=== PATIENT | male | born 1955 | race Caucasian/White ===

== ENCOUNTER 2024-01-07 14:08 | Inpatient (IN) | payer OTHER ==
[~2024-01-07] VITALS: Ht 177.8 cm; Wt 128.0 kg
--- NOTE | 2024-01-07 14:32 | ED.PDOC ---
History of Present Illness HPI Comments pt's walker broke and possibly struck his right leg. pt has neuropathy so cannot feel pain. he looked down and saw blood on the ground. this morning, the leg is red and swollen Chief Complaint: Fall Injury Time Seen by MD: 14:12 Reviewed Notes: Nurses Notes Allergies: Coded Allergies: NO KNOWN ALLERGIES (Unverified , 01/07/24) Information Source: Patient, Friend Mode of Arrival: Ambulatory Severity: Mild Timing: Days (1) Duration: Since onset Prehospital treatment: Other (dressing) Location: right leg Associated signs and symptoms redness, swelling Past Medical History PAST MEDICAL HISTORY: AFIB, DM Past Medical History (Other): djd Surgical History (Other): bilatereol shoulders, Family History Family History: Reviewed,noncontributory to illness, No family hx of Cancer, No family hx of DM, No family hx of Heart arash, No family hx of HTN, No family hx ofKidney arash, No family hx of Liver arash, No family hx of Lung arash, No family hx of Stroke Social History Smoker: Non-Smoker Alcohol: Denies ETOH Use Drugs: Denies Drug Use Constitutional: denies: chills, diaphoresis, fatigue, fever, malaise, sweats, weakness, others EENTM: denies: blurred vision, double vision, ear bleeding, ear discharge, ear drainage, ear pain, ear ringing, eye pain, eye redness, hearing loss, mouth pain, mouth swelling, nasal discharge, nose bleeding, nose congestion, nose pain, photophobia, tearing, throat pain, throat swelling, voice changes, others Respiratory: denies: cough, hemoptysis, orthopnea, SOB at rest, shortness of breath, SOB with excertion, stridor, wheezing, others Cardiovascular: denies: chest pain, dizzy spells, diaphoresis, Dyspnea on exertion, edema, irregular heart beat, left arm pain, lightheadedness, palpitations, PND, syncope, others Gastrointestinal: denies: abdomen distended, abdominal pain, blood streaked bowels, constipated, diarrhea, dysphagia, difficulty swallowing, hematemesis, melena, nausea, poor appetite, poor fluid intake, rectal bleeding, rectal pain, vomiting, others Genitourinary: denies: burning, dysuria, flank pain, frequency, hematuria, incontinence, penile discharge, penile sore, pain, testicle pain, testicle swelling, urgency, others Neurological: denies: dizziness, fainting, headache, left sided numbness, left sided weakness, numbness, paresthesia, pre-existing deficit, right sided numbness, right sided weakness, seizure, speech problems, tingling, tremors, weakness, others Integumetry: reports: change in color, rash, wounds; denies: bruises, change in hair/nails, dryness, laceration, lesions, lumps, others Allergic/Immunocompromised: denies: Difficulty Healing, Frequent Infections, Hives, Itching, others Hematologic/Lymphatic: denies: anemia, blood clots, easy bleeding, easy bruising, swollen glands, others Endocrine: denies: excessive hunger, excessive sweating, excessive thirst, excessive urination, flushing, intolerance to cold, intolerance to heat, unexplained weight gain, unexplained weight loss, others Psychiatric: denies: anxiety, bipolar disorder, depression, hopeless, panic disorder, schizophrenia, sleepless, suicidal, others All Other Systems: Reviewed and Negative Physical Exam General Appearance: No Apparent Distress, Normal HEENT: Normal ENT Inspection, Pharynx Normal, TMs Normal Neck: Full Range of Motion, Non-Tender, Normal, Normal Inspection Respiratory: Chest Non-Tender, Lungs Clear, No Accessory Muscle Use, No Respiratory Distress, Normal Breath Sounds Cardiovascular: No Edema, No JVD, No Murmur, No Gallop, Normal Peripheral Pulses, Regular Rate/Rhythm Breast Exam: Deferred Gastrointestinal: No Organomegaly, Non Tender, No Pulsatile Mass, Normal Bowel Sounds, Soft Genitalia: Deferred Pelvic: Deferred Rectal: Deferred Extremities: No calf tenderness, Normal capillary refill, Normal inspection, Normal range of motion, Non-tender, No pedal edema, Swelling, Other (right lower lateral leg with a hematoma, with oozing of blood, surrounded by cellulitic patch) Musculoskeletal : Apperance: Normal Neurologic: Alert, 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 Was a procedure done?: No Differential Dx Considerations may include: abscess, hematoma, fracture, soft tissue retained FB, laceration, cellulitis, necrotizing fasciitis X-Ray, Labs, Meds, VS Vital Signs Date Time Temp Pulse Resp B/P (MAP) Pulse Ox O2 Delivery O2 Flow Rate FiO2 01/07/24 19:30 97.8 77 16 129/63 (85) 97 97.8 01/07/24 19:30 77 16 Hi-Flow Heated NC+ 70 N/A Hi-Flow NC 01/07/24 18:31 72 16 95/50 01/07/24 17:14 67 20 95/45 (62) 93 01/07/24 17:14 78 16 101/52 01/07/24 16:00 73 01/07/24 15:45 78 20 96 Nasal Cannula* 2 28 01/07/24 15:36 98.2 78 20 91/42 (58) 93 98.2 01/07/24 14:56 98.2 78 20 100/50 (67) 96 98.2 01/07/24 14:21 98.5 68 20 95/41 (59) 94 Lab Test 01/07/24 19:23 01/07/24 17:32 01/07/24 14:48 Range/Units Troponin I High Sensitivity 17 17 18 </=54 ng/L Lactic Acid Level 1.0 2.0 0.4-2.0 mmol/L White Blood Count 9.9 4.4-10.8 10^3/uL Red Blood Count 4.88 4.5-5.90 10^6/uL Hemoglobin 13.6 13.5-17.5 g/dL Hematocrit 41.7 41.0-53.0 % Mean Corpuscular Volume 85.4 80.0-100.0 fL Mean Corpuscular Hemoglobin 27.9 L 28.0-32.0 pg Mean Corpuscular Hemoglobin Concent 32.6 32.0-36.0 g/dL Red Cell Distribution Width 17.0 H 11.8-14.3 % Platelet Count 251 140-450 10^3/uL Mean Platelet Volume 7.9 6.9-10.8 fL Neutrophils (%) (Auto) 73.3 37.0-80.0 % Lymphocytes (%) (Auto) 13.7 10.0-50.0 % Monocytes (%) (Auto) 10.8 0.0-12.0 % Eosinophils (%) (Auto) 1.5 0.0-7.0 % Basophils (%) (Auto) 0.7 0.0-2.0 % Neutrophils # (Auto) 7.3 1.6-8.6 10 ^3/uL Lymphocytes # (Auto) 1.4 0.4-5.4 10 ^3/uL Monocytes # (Auto) 1.1 0-1.3 10 ^3/uL Eosinophils # (Auto) 0.2 0-0.8 10 ^3/uL Basophils # (Auto) 0.1 0-0.2 10 ^3/uL Nucleated Red Blood Cells 0.0 % Prothrombin Time 11.9 H 9.3-11.8 sec Prothrombin Time INR 1.13 0.9-1.15 Activated Partial Thromboplast Time 28.4 24.5-34.5 SEC Sodium Level 137 136-145 mmol/L Potassium Level 4.3 3.5-5.1 mmol/L Chloride Level 100 98-107 mmol/L Carbon Dioxide Level 30 20-31 mmol/L Anion Gap 7 5-15 Blood Urea Nitrogen 24 H 9-23 mg/dL Creatinine 0.84 0.700-1.30 mg/dL Glomerular Filtration Rate Calc 96 >90 mL/min BUN/Creatinine Ratio 28.6 H 10.0-20.0 Serum Glucose 105 74-106 mg/dL Calcium Level 9.8 8.7-10.4 mg/dL Current Medications Medications (Trade) Dose Ordered Sig/Yesneia Route Start Time Stop Time Status Last Admin Ceftriaxone Sodium 50 ml @ 100 mls/hr ONCE ONCE IV 01/07/24 14:30 01/07/24 14:59 DC 01/07/24 15:35 Sodium Chloride 2,200 ml @ 2,200 mls/hr ONCE ONCE IV 01/07/24 16:00 01/07/24 16:59 DC 01/07/24 16:28 Morphine Sulfate 2 mg ONCE ONCE IV 01/07/24 16:45 01/07/24 16:46 DC 01/07/24 17:14 Ondansetron HCl (Zofran) 4 mg ONCE ONCE IV 01/07/24 16:45 01/07/24 16:46 DC 01/07/24 17:15 Time of 1ST Reevaluation: 15:51 Reevaluation 1ST: Worsened (the rash has spred proximally, but thre is no crepitus, no exquisit tenderness. his BP has dropped. i will initiate sepssi protocol, order a ct to rule out necrotizing fasciitis) Time of 3RD Reevaluation: 21:10 Reevaluation 3RD: Improved Patient Education/Counseling: Diagnosis, Treatment, Prognosis, Need For Follow Up Family Education/Counseling: Diagnosis, Treatment, Prognosis, Need For Follow Up Additional Information pt presented with a rapidly progressing cellulitis of the right leg. she was showing signs of sepsis. pt responded to treatments and his rash had stop progressing and his BP has improved pt will need to be admitted for sepsis and cellulitis i ordered and reviewed the results for cbc, chemistry, xray, lactic acid i also obtained additional information from independent historian who is a fr iend i reviewed and agree with radiology regarding the xray. the ct report is pending i communicated with hospital personnel regarding treatments and plan we have called radiology multiple times to try to get the ct reading, but we are told there were delays in sending images, so we are still waiting for result i will sign out to Dr Jacinto with the ct result pending to consult [facility] to admit Departure 1 Departure Time of Disposition: 21:16 Impression: Primary Impression: Sepsis Qualified Codes: A41.9 - Sepsis, unspecified organism Additional Impressions: Hematoma Cellulitis Qualified Codes: L03.115 - Cellulitis of right lower limb Disposition: 30 STILL A PATIENT Condition: Stable Critical Care Note Critical Care Time?: Yes (1 hr-critical care time only) Critical care comment: due to the likelihood of patients condition suddenly deteriorating, the care requires my highest level of attention, readiness to intervene. my critical care include assessing and reassessing of patient's condition, response to treatments, ordering the appropriate tests, reviewing the results, ordering of treatments, discussing the care with medical personnel and consultants, and formulating a treatment plan, as well a reviewing various medical records. this include at least 50% face-face interaction, and does not include any procedures Stability Stability form required: DEANDRE Sepulveda MD Jan 07, 2024 14:32
[2024-01-07 15:05] LABS: Basophils # (auto) 0.1 10 ^3/uL (0-0.2); Basophils % (auto) 0.7 % (0.0-2.0); Eosinophils # (auto) 0.2 10 ^3/uL (0-0.8); Eosinophils % (auto) 1.5 % (0.0-7.0); Hematocrit 41.7 % (41.0-53.0); Hemoglobin 13.6 g/dL (13.5-17.5); Lymphocytes # (auto) 1.4 10 ^3/uL (0.4-5.4); Lymphocytes % (auto) 13.7 % (10.0-50.0); Mean Corpuscular Hemoglobin 27.9 pg (28.0-32.0); Mean Corpuscular Hgb Conc. 32.6 g/dL (32.0-36.0); Mean Corpuscular Volume 85.4 fL (80.0-100.0); Monocytes # (auto) 1.1 10 ^3/uL (0-1.3); Monocytes % (auto) 10.8 % (0.0-12.0); Neutrophils # (auto) 7.3 10 ^3/uL (1.6-8.6); Neutrophils % (auto) 73.3 % (37.0-80.0); Platelet Count (auto) 251 10^3/uL (140-450); Red Blood Cells 4.88 10^6/uL (4.5-5.90); White Blood Cell 9.9 10^3/uL (4.4-10.8)
[2024-01-07 15:13] LABS: Chloride 100 mmol/L (98-107); Potassium 4.3 mmol/L (3.5-5.1); Sodium 137 mmol/L (136-145)
[2024-01-07 15:14] LABS: Anion Gap 7 (5-15); Calcium 9.8 mg/dL (8.7-10.4); Carbon Dioxide 30 mmol/L (20-31)
[2024-01-07 15:19] LABS: BUN/Creatinine Ratio 28.6 (10.0-20.0); Blood Urea Nitrogen 24 mg/dL (9-23); Glucose 105 mg/dL (74-106)
[2024-01-07 15:27] LABS: INR 1.13 (0.9-1.15); Partial Thromboplastin Time 28.4 SEC (24.5-34.5); Prothrombin Time 11.9 sec (9.3-11.8)
[2024-01-07] MEDS: cefTRIAXone 1GM/50ML D5W 50 ML IV ONE (15:35)
[2024-01-07 15:45] VITALS: PULSE 78; RESP 20; O2SAT 96
--- NOTE | 2024-01-07 15:57 | DVH ---
CLINICAL INDICATION: injury TECHNIQUE: 3 radiographic views of the right tibia and fibula were obtained. Comparison: None FINDINGS/IMPRESSION: There is no evidence of acute fracture or dislocation. Bony spur of the tibial spine. The visualized joint space is well maintained. The alignment is anatomical. There is soft tissue edema of the lateral mid and distal lower leg.
[2024-01-07] MEDS: SODIUM CHLORIDE 0.9% 2,200 ML IV ONE (16:28)
[2024-01-07] MEDS: MORPHINE SULFATE INJ 2 MG/ml SYRG IV ONE (17:14)
[2024-01-07] MEDS: ONDANSETRON HCL 4 MG/2 ML VIAL IV ONE (17:15)
[2024-01-07 19:30] VITALS: PULSE 77; RESP 16
[2024-01-07 19:35] VITALS: PULSE 78; RESP 18
[2024-01-07] MEDS: HYDROcodone-ACET 5/325MG TAB PO ONE (21:46)
--- NOTE | 2024-01-07 22:03 | DVH ---
INDICATION: NECROTIZING FASCITIS COMPARISON: None TECHNIQUE: CT of the right was performed without contrast. Volume transverse images were obtained a nd reconstructed in multiple planes using bone and soft tissue algorithms. CONTRAST: None Radiation Dose Information: CT Dose: CTDI volume is 7.75 mGy. Dose-length product is 422.05 mGy*cm FINDINGS: The alignment is normal. The joint spaces are normal. Minimally displaced fracture lateral aspect of the patella. There is minimal soft tissue swelling thi s may represent old injury. Correlate for tenderness over this region. There is a well-circumscribed oval soft tissue density ( 4.8 x 3.5 cm x 5.5 cm) just below the skin o n the lateral side of the mid tibia with what appears to be a communication with the surface. (series 2 images 235- 249 ). Tissue density is 56.67 HU and does not appear to be a simple fluid collection. IMPRESSION: Most likely subcutaneous phlegmon lateral surface mid tibia. Measures 4.8 by 3.5 by 5.5 cm. There joanna ears to be a break in the skin over the lesion. There is no osseous abnormality periosteal reaction or fracture. Fracture deformity age indeterminate lateral portion of the patella with minimal overlying soft tissu e swelling. Bifid patella versus old injury or both in the differential. Correlate for point of maxim um tenderness.
[2024-01-07] MEDS ORDERED: NITROGLYCERIN 0.4 MG SL TAB SL PRN (23:30)
[2024-01-07] MEDS ORDERED: MORPHINE SULFATE INJ 2 MG/ml SYRG IV PRN (23:30)
[2024-01-07] MEDS ORDERED: ONDANSETRON HCL 4 MG/2 ML VIAL IV PRN (23:30)
[2024-01-07 23:48] LABS: Urine Bacteria None Seen /hpf (None Seen); Urine WBC None Seen /hpf (0 - 3)
[2024-01-08 00:03] LABS: Urine Blood Negative /uL (Negative); Urine Clarity Clear (Clear); Urine Color Light-Yellow (Yellow); Urine Protein, UAD Negative (Negative); Urine Specific Gravity 1.017 (1.001-1.035); Urine Urobilinogen Normal (Negative)
[2024-01-08] MEDS: SOD CHL 0.45% 1,000 ML IV ONE (00:03)
[2024-01-08] MEDS: MORPHINE SULFATE INJ 2 MG/ml SYRG IV PRN (02:37)
[2024-01-08 05:15] LABS: Basophils # (auto) 0.1 10 ^3/uL (0-0.2); Basophils % (auto) 0.8 % (0.0-2.0); Eosinophils # (auto) 0.3 10 ^3/uL (0-0.8); Eosinophils % (auto) 3.2 % (0.0-7.0); Hematocrit 39.5 % (41.0-53.0); Lymphocytes # (auto) 1.5 10 ^3/uL (0.4-5.4); Lymphocytes % (auto) 18.8 % (10.0-50.0); Mean Corpuscular Hemoglobin 28.3 pg (28.0-32.0); Mean Corpuscular Hgb Conc. 32.9 g/dL (32.0-36.0); Monocytes # (auto) 1.1 10 ^3/uL (0-1.3); Monocytes % (auto) 14.1 % (0.0-12.0); Neutrophils # (auto) 5.1 10 ^3/uL (1.6-8.6); Neutrophils % (auto) 63.1 % (37.0-80.0); Nucleated Red Blood Cells % 0.1 %; Platelet Count (auto) 224 10^3/uL (140-450); Red Blood Cells 4.59 10^6/uL (4.5-5.90); Red Cell Distribution Width 16.7 % (11.8-14.3)
[2024-01-08 05:29] LABS: Alanine Aminotransferase 16 U/L (7-40); Alkaline Phosphatase 75 U/L (46-116); Anion Gap 6 (5-15); Aspartate Aminotransferase 13 U/L (13-40); BUN/Creatinine Ratio 20.8 (10.0-20.0); Blood Urea Nitrogen 20 mg/dL (9-23); Calcium 9.5 mg/dL (8.7-10.4); Carbon Dioxide 29 mmol/L (20-31); Chloride 101 mmol/L (98-107); Potassium 4.4 mmol/L (3.5-5.1)
[2024-01-08 05:30] LABS: Albumin 3.9 g/dL (3.2-4.8); Total Protein 6.2 g/dL (5.7-8.2)
[2024-01-08 05:32] LABS: Glucose 130 mg/dL (74-106); Sodium 136 mmol/L (136-145)
[2024-01-08 07:30] VITALS: PULSE 70; RESP 21; O2SAT 95
[2024-01-08] MEDS: cefTRIAXone 1GM/50ML D5W 50 ML IV SCH (09:27)
--- NOTE | 2024-01-08 10:27 | DVHHP2 ---
Admitting Diagnosis: Penetrating leg trauma, possible abscess development History of Present Illness HPI 68 y.o. male with neuropathy fell on his walker and the broken part of the walker injured his right lower leg. CT showed possible phlegmon development. Past Medical History Cardiac: AFIB, HTN Endocrine: NIDDM Review of Systems Musculoskeletal: Leg pain H&P Exam Vital Signs Vital Signs Date Time Temp Pulse Resp B/P (MAP) Pulse Ox O2 Delivery O2 Flow Rate FiO2 01/08/24 09:58 63 01/08/24 08:00 15 116/53 (74) 91 01/08/24 07:30 Nasal Cannula* 2 28 01/08/24 07:30 97.7 97.7 General Appeara: Obese Head Exam: Normal inspection Neck Exam: Non-tender Eye Exam: bilateral eye PERRL, bilateral eye EOMI Pulmonary/Respiratory: Normal breath sounds Cardiovascular/Chest: Normal Rhythm Legs: right leg ecchymosis, right leg swelling, right leg other (wound 3x4 cm) Neuro/Mental St: Alert, Oriented Wounds right lower leg Labs/Xrays Labs Test 01/08/24 04:39 01/07/24 21:30 01/07/24 19:23 01/07/24 17:32 Range/Units White Blood Count 8.0 4.4-10.8 10^3/uL Red Blood Count 4.59 4.5-5.90 10^6/uL Hemoglobin 13.0 L 13.5-17.5 g/dL Hematocrit 39.5 L 41.0-53.0 % Mean Corpuscular Volume 86.0 80.0-100.0 fL Mean Corpuscular Hemoglobin 28.3 28.0-32.0 pg Mean Corpuscular Hemoglobin Concent 32.9 32.0-36.0 g/dL Red Cell Distribution Width 16.7 H 11.8-14.3 % Platelet Count 224 140-450 10^3/uL Mean Platelet Volume 7.9 6.9-10.8 fL Neutrophils (%) (Auto) 63.1 37.0-80.0 % Lymphocytes (%) (Auto) 18.8 10.0-50.0 % Monocytes (%) (Auto) 14.1 H 0.0-12.0 % Eosinophils (%) (Auto) 3.2 0.0-7.0 % Basophils (%) (Auto) 0.8 0.0-2.0 % Neutrophils # (Auto) 5.1 1.6-8.6 10 ^3/uL Lymphocytes # (Auto) 1.5 0.4-5.4 10 ^3/uL Monocytes # (Auto) 1.1 0-1.3 10 ^3/uL Eosinophils # (Auto) 0.3 0-0.8 10 ^3/uL Basophils # (Auto) 0.1 0-0.2 10 ^3/uL Nucleated Red Blood Cells 0.1 % Sodium Level 136 136-145 mmol/L Potassium Level 4.4 3.5-5.1 mmol/L Chloride Level 101 98-107 mmol/L Carbon Dioxide Level 29 20-31 mmol/L Anion Gap 6 5-15 Blood Urea Nitrogen 20 9-23 mg/dL Creatinine 0.96 0.700-1.30 mg/dL Glomerular Filtration Rate Calc 87 >90 mL/min BUN/Creatinine Ratio 20.8 H 10.0-20.0 Serum Glucose 130 H 74-106 mg/dL Calcium Level 9.5 8.7-10.4 mg/dL Total Bilirubin 1.0 0.2-1.0 mg/dL Aspartate Amino Transferase (AST) 13 13-40 U/L Alanine Aminotransferase (ALT) 16 7-40 U/L Alkaline Phosphatase 75 46-116 U/L Total Protein 6.2 5.7-8.2 g/dL Albumin 3.9 3.2-4.8 g/dL Urine Color Light-yellow Yellow Urine Clarity Clear Clear Urine pH 5.0 5.0-9.0 Urine Specific Marissa 1.017 1.001-1.035 Urine Protein Negative Negative Urine Ketones Negative Negative Urine Blood Negative Negative /uL Urine Nitrite Negative Negative Urine Bilirubin Negative Negative Urine Urobilinogen Normal Negative mg/dL Urine Leukocyte Esterase Negative Negative /uL Urine RBC None seen 0 - 3 /hpf Urine WBC None seen 0 - 3 /hpf Urine Squamous Epithelial Cells Few <5 /hpf Urine Bacteria None seen None Seen /hpf Urine Glucose 4+ H Normal mg/dL Troponin I High Sensitivity 17 </=54 ng/L Lactic Acid Level 1.0 0.4-2.0 mmol/L Test 01/07/24 14:48 Range/Units Prothrombin Time 11.9 H 9.3-11.8 sec Prothrombin Time INR 1.13 0.9-1.15 Activated Partial Thromboplast Time 28.4 24.5-34.5 SEC Assessment/Plan Problem List: (1) Penetrating injury of right lower extremity (2) Hypotension (3) Diabetes (4) Obesity, morbid Plan wound care, antibiotics, surgery consult, Insulin Plan discussed with: Patient WILLIAM POSADAS MD Jan 08, 2024 10:27
[2024-01-08] MEDS ORDERED: DEXTROSE (50%) 50ML SYRG IV PRN (10:30)
[2024-01-08] MEDS: InsuLIN REG 1unit/0.01ml Soln (100units/ml) SC SCH (11:46)
[2024-01-08] MEDS: ACCU-CHEK COMFORT CURVE STRIP VI SCH (11:46)
[2024-01-08] MEDS ORDERED: DOXY-286 PO (12:37)
[2024-01-08] MEDS ORDERED: METR-344 PO (12:39)
[2024-01-08] MEDS: FUROSEMIDE 40 MG/4 ML VIAL IV ONE (12:55)
[2024-01-08 13:10] VITALS: BP 117/64
[2024-01-08 13:30] VITALS: BP 129/69; PULSE 71; RESP 16; TEMP 98.6; O2SAT 93
--- NOTE | 2024-01-08 14:28 | DVHDS2 ---
Discharge Summary Date of Admission Jan 07, 2024 at 23:16 Date of Discharge: Jan 08, 2024 Labs/Diagnostic Data: Laboratory Results Test 01/08/24 11:40 01/08/24 04:39 01/07/24 21:30 01/07/24 19:23 POC Glucose 200 mg/dl (70-106) White Blood Count 8.0 10^3/uL (4.4-10.8) Red Blood Count 4.59 10^6/uL (4.5-5.90) Hemoglobin 13.0 g/dL (13.5-17.5) Hematocrit 39.5 % (41.0-53.0) Mean Corpuscular Volume 86.0 fL (80.0-100.0) Mean Corpuscular Hemoglobin 28.3 pg (28.0-32.0) Mean Corpuscular Hemoglobin Concent 32.9 g/dL (32.0-36.0) Red Cell Distribution Width 16.7 % (11.8-14.3) Platelet Count 224 10^3/uL (140-450) Mean Platelet Volume 7.9 fL (6.9-10.8) Neutrophils (%) (Auto) 63.1 % (37.0-80.0) Lymphocytes (%) (Auto) 18.8 % (10.0-50.0) Monocytes (%) (Auto) 14.1 % (0.0-12.0) Eosinophils (%) (Auto) 3.2 % (0.0-7.0) Basophils (%) (Auto) 0.8 % (0.0-2.0) Neutrophils # (Auto) 5.1 10 ^3/uL (1.6-8.6) Lymphocytes # (Auto) 1.5 10 ^3/uL (0.4-5.4) Monocytes # (Auto) 1.1 10 ^3/uL (0-1.3) Eosinophils # (Auto) 0.3 10 ^3/uL (0-0.8) Basophils # (Auto) 0.1 10 ^3/uL (0-0.2) Nucleated Red Blood Cells 0.1 % Sodium Level 136 mmol/L (136-145) Potassium Level 4.4 mmol/L (3.5-5.1) Chloride Level 101 mmol/L (98-107) Carbon Dioxide Level 29 mmol/L (20-31) Anion Gap 6 (5-15) Blood Urea Nitrogen 20 mg/dL (9-23) Creatinine 0.96 mg/dL (0.700-1.30) Glomerular Filtration Rate Calc 87 mL/min (>90) BUN/Creatinine Ratio 20.8 (10.0-20.0) Serum Glucose 130 mg/dL (74-106) Calcium Level 9.5 mg/dL (8.7-10.4) Total Bilirubin 1.0 mg/dL (0.2-1.0) Aspartate Amino Transferase (AST) 13 U/L (13-40) Alanine Aminotransferase (ALT) 16 U/L (7-40) Alkaline Phosphatase 75 U/L (46-116) Total Protein 6.2 g/dL (5.7-8.2) Albumin 3.9 g/dL (3.2-4.8) Urine Color Light-yellow (Yellow) Urine Clarity Clear (Clear) Urine pH 5.0 (5.0-9.0) Urine Specific [place] 1.017 (1.001-1.035) Urine Protein Negative (Negative) Urine Ketones Negative (Negative) Urine Blood Negative /uL (Negative) Urine Nitrite Negative (Negative) Urine Bilirubin Negative (Negative) Urine Urobilinogen Normal mg/dL (Negative) Urine Leukocyte Esterase Negative /uL (Negative) Urine RBC None seen /hpf (0 - 3) Urine WBC None seen /hpf (0 - 3) Urine Squamous Epithelial Cells Few /hpf (<5) Urine Bacteria None seen /hpf (None Seen) Urine Glucose 4+ mg/dL (Normal) Troponin I High Sensitivity 17 ng/L (</=54) Test 01/07/24 17:32 01/07/24 14:48 Lactic Acid Level 1.0 mmol/L (0.4-2.0) Prothrombin Time 11.9 sec (9.3-11.8) Prothrombin Time INR 1.13 (0.9-1.15) Activated Partial Thromboplast Time 28.4 SEC (24.5-34.5) Other Laboratory Tests 01/08/24 04:39 Brief Hx & Hospital Course: Patient is a 68-year-old male with past medical history of type 2 diabetes who presented after falling on his walker and noting that the broken part of the walker injured his right lower leg. Patient notes this injury happened 2 days prior. Since then, he has noted some redness and pain at the site. CT of the lower extremity was done which showed a subcutaneous phlegmon on the lateral surface of the mid tibia measuring 4.8 x 3.5 x 5.5 cm. There were no osseous abnormalities or fractures. Also noted was a fracture deformity age- indeterminate on the lateral portion of the patella. The case was discussed with general surgery who recommended no surgical intervention. The case was also discussed with orthopedic surgery who recommended no intervention. The site was examined and was noted to have some redness without pustular discharge. CBC did not reveal any leukocytosis. Patient was afebrile. CMP was within normal limits. Patient received ceftriaxone while in the ER. EKG was done which showed prolonged QTc interval. Patient was discharged on doxycycline 100 mg p.o. twice daily and Flagyl 500 mg 3 times daily for total duration of 10 days. He is to have wound care to follow-up on his leg at [facility] urgent care within a week. Patient was also diuresed with 40 mg IV Lasix x 1 given reported history of CHF with some respiratory failure. Patient was discharged on home oxygen. Patient was given ER return precautions. Patient discharged in stable condition. Patient in agreement with the plan. Condition at Discharge: Fair Final Diagnosis/Problems List Abrasion of Leg Secondary Diagnosis: Type 2 Diabetes Atrial Fibrillation Hypercoagulabe State Morbid Obesity Discharge Disposition: Home Discharge Instruct/Medications Diet: Consistent carbohydrate Activity: No Restrictions, As Tolerated Follow Up/Referral: Follow up with PCP. Follow up at [facility] Wound Care clinic. Medications: Doxycyline and Flagyl for wound. Keep dry gauze placed and change as needed. Swelling will take time to come down. Discharge Statement: "Patient was advised to return to the ER or call 911 if any headaches, dizziness, shortness of breath, chest pain, abdominal pain, bleeding, fevers, or worsening of medical condition. Patient was counseled about treatment plan, medications, possible side effects, patientverbalized understanding. All questions were answered to the best of my ability. This discharge took greater then 30 minutes in planning, reviewing documentation, counseling the patient, and discussing with other team members." ASSESSMENT ASSESSMENT Assessment Abrasion of Leg HILARY HOSKINS DO Jan 08, 2024 14:28
--- NOTE | 2024-01-08 18:53 | ECG ---
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
== END 2024-01-08 13:30 | disposition home or self-care (01) | DRG 605 ==
LOC: ER 14:08 → TELE 23:16
PROVIDERS: ADMIT Internal Medicine; ATTEND Internal Medicine
DX: S80.811A Abrasion, right lower leg, initial encounter (principal); Z68.41 Body mass index [BMI] 40.0-44.9, adult; I50.32 Chronic diastolic (congestive) heart failure; S80.11XA Contusion of right lower leg, initial encounter; I48.91 Unspecified atrial fibrillation; E66.01 Morbid (severe) obesity due to excess calories; I95.9 Hypotension, unspecified; E11.40 Type 2 diabetes mellitus with diabetic neuropathy, unspecified; I11.0 Hypertensive heart disease with heart failure; Z79.84 Long term (current) use of oral hypoglycemic drugs; Z79.899 Other long term (current) drug therapy; W18.39XA Other fall on same level, initial encounter; Y93.89 Activity, other specified; Y92.89 Other specified places as the place of occurrence of the external cause; Y99.8 Other external cause status
CPT/HCPCS: 36415; 73590; 73700; 80048; 80053; 81001; 82962; 83605; 84484; 85025; 85610; 85730; 87040; 93005; 99291; G0378; J1815; J2405